=== PATIENT | male | born 1990 | race Two or more races ===

== ENCOUNTER 2021-05-15 14:55 | Emergency (ER) | payer MEDICAID ==
[~2021-05-15] VITALS: Ht 172.7 cm; Wt 82.6 kg
[2021-05-15] MEDS ORDERED: TDAP DIPH,PERTUSS,TET VAC/PF 0.5 ML DISP.SYRIN IM ONE ×2 (15:30→15:41)
[2021-05-15] MEDS ORDERED: NEOMY/BACITRA/POLYMYXIN B OINT UD PACKET TP ONE ×2 (15:30→15:41)
--- NOTE | 2021-05-15 15:42 | NUR ---
Patient discharged to home in stable condition. Written and verbal after care instructions given. Patient verbalizes understanding of instructions. Stressed follow up or return to ER for worsening s/s.
== END 2021-05-15 15:43 | disposition home or self-care (01) ==
LOC: ER 14:55
DX: S91.332A Puncture wound without foreign body, left foot, initial encounter (principal); W22.8XXA Striking against or struck by other objects, initial encounter; Y92.89 Other specified places as the place of occurrence of the external cause
CPT/HCPCS: 90715; A4663

== ENCOUNTER 2021-09-14 22:04 | Emergency (ER) | payer SELFPAY | END 2021-09-14 23:38 | disposition left against medical advice (07) | LOC: ER 22:06 | DX: Z53.21 Procedure and treatment not carried out due to patient leaving prior to being seen by health care provider (principal) ==

== ENCOUNTER 2022-12-07 13:35 | Emergency (ER) | payer MEDICAID ==
[~2022-12-07] VITALS: Ht 172.7 cm; Wt 86.2 kg
--- NOTE | 2022-12-07 13:56 | NUR ---
Patient ambulated to room, with c/o BLE phong areas with bloody drainage noted,was seen by the ER MD, informed of plan of care. No s/s of any distress noted at this time. LLE with ankle monitor intact.
[2022-12-07] MEDS ORDERED: CEPH500T PO ×2 (13:57→14:15)
[2022-12-07] MEDS ORDERED: SULF1TAB48 PO ×2 (13:57→14:15)
--- NOTE | 2022-12-07 14:09 | NUR ---
ACI GIVEN, STATES UNDERSTANDING, REMAINS STABLE FOR DISCHARGE.
[2022-12-07 14:10] VITALS: BP 128/78
== END 2022-12-07 14:11 | disposition home or self-care (01) ==
LOC: ER 13:35
DX: L73.9 Follicular disorder, unspecified (principal); B95.62 Methicillin resistant Staphylococcus aureus infection as the cause of diseases classified elsewhere; Z79.899 Other long term (current) drug therapy
CPT/HCPCS: A4663